=== PATIENT | male | born 1980 | race Two or more races ===

== ENCOUNTER 2016-04-09 08:34 | Emergency (ER) | payer MEDICAID ==
--- NOTE | 2016-04-09 09:29 | ED ---
General Adult HPI - General Chief complaint: Extremity Problem,Nontraumatic Stated complaint: knee pain Time Seen by Provider: 04/09/16 08:46 Source: patient, RN notes reviewed Mode of arrival: ambulatory Limitations: no limitations - History of Present Illness Initial comments: Patient is a 35-year-old male who presents emergency room today with a chief complaint of chronic pain to the left knee. He does admit that he was trying follow-up family doctor but cannot an appointment until next week. He does admit that he had a cortisone injection recently for this with little relief the symptoms. States he's trying to get a referral to get his knee taking care of. Does admit that it feels like a meniscal injury as he had one on the right and this feels similar. He states worse when he goes up and down a ladder or stairs. Patient denies any specific injury or trauma. Patient denies any recent fever, chills, shortness of breath, chest pain, back pain, abdominal pain , nausea or vomiting, numbness or tingling, dysuria or hematuria, constipation or diarrhea, headaches or visual changes, or any other complaints. - Related Data Home Medications Medication Instructions Recorded Confirmed Lisinopril-Hctz 10-12.5 mg 1 tab PO DAILY 01/07/16 04/09/16 [Zestoretic 10-12.5] amLODIPine [Norvasc] 5 mg PO DAILY 01/07/16 04/09/16 traMADol HCl [Ultram] 50 mg PO BID PRN 01/07/16 04/09/16 Previous Rx's Medication Instructions Recorded Ibuprofen [Motrin] 600 mg PO Q6HR PRN #40 day 04/09/16 Allergies Allergy/AdvReac Type Severity Reaction Status Date / Time No Known Allergies Allergy Verified 04/09/16 08:52 Review of Systems ROS Statement: Those systems with pertinent positive or pertinent negative responses have been documented in the HPI. ROS Other: All systems not noted in ROS Statement are negative. Past Medical History Past Medical History: No Reported History History of Any Multi-Drug Resistant Organisms: None Reported Past Surgical History: No Surgical Hx Reported Past Psychological History: No Psychological Hx Reported Smoking Status: Current every day smoker Past Alcohol Use History: Occasional Past Drug Use History: None Reported General Exam - General Exam Comments Initial Comments: General: The patient is awake and alert, in no distress, and does not appear acutely ill. Neck: The neck is supple, there is no tenderness or JVD. Cardiovascular: There is a regular rate and rhythm. No murmur, rub or gallop is appreciated. Respiratory: Lungs are clear to auscultation, respirations are non-labored, breath sounds are equal. No wheezes, stridor, rales, or rhonchi. Musculoskeletal: Normal appearance of the left knee no swelling or bruising. Shows full range of motion. Sensation intact pulses equal bilaterally 2+. Strength 5/5. Neurological: A&O x 3. CN II-XII intact, There are no obvious motor or sensory deficits. Coordination appears grossly intact. Speech is normal. Skin: Skin is warm and dry and no rashes or lesions are noted. Psychiatric: Normal mood and affect. Limitations: no limitations Course Vital Signs 04/09/16 08:38 Temperature 99.0 F Pulse Rate 77 Respiratory 18 Rate Blood Pressure 145/84 O2 Sat by Pulse 99 Oximetry Medical Decision Making - Medical Decision Making Patient will be referred to orthopedics or family doctor for referral and further evaluation and possible MRI. Advised ice elevate and use anti- inflammatories for pain. Disposition Clinical Impression: Knee pain Disposition: HOME SELF-CARE Condition: Good Instructions: Knee Pain (ED) Additional Instructions: Please follow-up with the family doctor or orthopedics as discussed. Please use anti-inflammatories as prescribed. Please continue to ice elevate the affected area. Please return for any other concerns. Prescriptions: Ibuprofen [Motrin] 600 mg PO Q6HR PRN #40 day PRN Reason: Pain Referrals: Zandra Agarwal MD [Primary Care Provider] - 1-2 days Patricio Cabrera MD [STAFF PHYSICIAN] - 1-2 days Time of Disposition: 09:28
[2016-04-09 09:43] VITALS: BP 120/70; PULSE 78; RESP 16; TEMP 97.8
== END 2016-04-09 09:42 | disposition home or self-care (01) ==
LOC: EC 08:34
DX: M25.562 Pain in left knee (principal); G89.29 Other chronic pain; F17.200 Nicotine dependence, unspecified, uncomplicated; Z79.899 Other long term (current) drug therapy
CPT/HCPCS: 99283

== ENCOUNTER → 2016-05-05 | Outpatient (CLI) | payer MEDICAID ==
--- NOTE | 2016-05-05 15:56 | MR ---
EXAMINATION TYPE: MR knee LT wo con DATE OF EXAM: 05/05/2016 1:48 PM COMPARISON: NONE HISTORY: Left knee pain TECHNIQUE: Multiplanar, multisequence imaging of the left knee is performed without IV contrast. FINDINGS: MEDIAL MENISCUS: There is oblique signal without communication with an articular surface within the p osterior medial meniscus. This can be compatible type I internal derangement or degenerative change. LATERAL MENISCUS: Anterior and posterior horns are intact without tear. CRUCIATE LIGAMENTS: The anterior and posterior cruciate ligaments are intact and unremarkable. COLLATERAL LIGAMENTS: The medial collateral ligament and lateral collateral ligament complex are inta ct and unremarkable. EXTENSOR MECHANISM: Visualized quadriceps and patellar tendons are intact. EFFUSION: Minimal joint fluid is present does not appear out of proportion to physiologic joint flui d. POPLITEAL CYST: No popliteal/monreal cyst. TRICOMPARTMENT SPACES: Joint spaces are preserved. No articular cartilage abnormality is identified. BONE MARROW SIGNAL: No focal abnormal marrow signal is appreciated OTHER: No additional significant abnormality is appreciated. IMPRESSION: Internal derangement posterior horn lateral meniscus. No tear communicating with an articular surface is evident.
== END | disposition home or self-care (01) ==
LOC: RADMRIMAIN 13:14
PROVIDERS: ATTEND Orthopaedic Surgery
DX: M23.8X2 Other internal derangements of left knee (principal)

== ENCOUNTER → 2016-05-26 | Outpatient (CLI) | payer MEDICAID ==
[2016-05-26 10:14] LABS: EKG EKG PERFORMED
[2016-05-26 10:46] LABS: Basophils % (A) 0 %; CH 31.3; CHCM 36.2; Eosinophils # (A) 0.1 k/uL (0-0.7); Eosinophils % (A) 1 %; HCT 44.3 % (39.0-53.0); HDW 2.98; HGB 15.5 gm/dL (13.0-17.5); Luc # (Auto) 0.19; Luc % (Auto) 2; Lymphocytes # (A) 2.1 k/uL (1.0-4.8); Lymphocytes % (A) 25 %; MCH 30.3 pg (25.0-35.0); MCHC 34.9 g/dL (31.0-37.0); MCV 86.9 fL (80.0-100.0); Mean Platelet Volume 7.3; Monocytes # (A) 0.4 k/uL (0-1.0); Monocytes % (A) 4 %; Neutrophils # (A) 5.6 k/uL (1.3-7.7); Neutrophils % (A) 67 %; RDW 13.1 % (11.5-15.5); WBC 8.3 k/uL (3.8-10.6)
[2016-05-26 11:04] LABS: Anion Gap 11 mmol/L; Carbon Dioxide 26 mmol/L (22-30); Chloride 105 mmol/L (98-107); Potassium 4.5 mmol/L (3.5-5.1); Sodium 142 mmol/L (137-145)
== END | disposition home or self-care (01) ==
LOC: LABPAT 10:03
PROVIDERS: ATTEND Orthopaedic Surgery
DX: Z01.818 Encounter for other preprocedural examination (principal); M23.92 Unspecified internal derangement of left knee; I10 Essential (primary) hypertension
CPT/HCPCS: 36415; 80051; 85025; 93005

== ENCOUNTER 2016-06-04 08:27 | Day surgery (SDC) | payer MEDICAID ==
[2016-05-30 13:07] VITALS: BMI 34.5
--- NOTE | 2016-06-03 15:07 | HP ---
DATE OF ADMISSION: 06/04/2016 Dale Forman is a 35-year-old patient seen with progressive left knee pain. After having treatment options discussed, he elected to proceed with left knee arthroscopy. Consent was obtained. His past medical history is hypertension. PAST SURGICAL HISTORY: Noncontributory. DAILY MEDICATIONS: Aleve. ALLERGIES: None. SOCIAL HISTORY: Patient currently smokes cigarettes. Physical evaluation of the left knee: Range of motion is 0 to 125 degrees, tenderness medial joint line. Positive medial Elaine's. Ligaments stable. Hip rotation without pain. Distal neurovascular exam intact. Radiographs of the left knee revealed mild osteoarthritis. MRI of the left knee revealed abnormal signal posterior medial meniscus. IMPRESSION: Internal derangement of the left knee with medial meniscal tear. PLAN: Left knee arthroscopy with partial meniscectomy and debridement.
[~2016-06-04 08:27] MED LIST: DEXAMETHASONE SOD PHOSPHATE 10 MG/ML 1 ML VIAL IV ONE; HYDROmorphone 1 MG/ML 1 ML SYRINGE IVP PRN; LACTATED RINGERS 1,000 ML IV SCH; LIDOCAINE 1% 20 ML VIAL (10MG/ML) FOR IV START INTRADERMA PRN; MIDAZOLAM 2 MG/2 ML VIAL IV PRN; ONDANSETRON 4 MG/2 ML VIAL IVP ONE; SCOPOLAMINE 1.5MG/72HR PATCH TRANSDERM ONE; ceFAZolin 2 GM in SODIUM CHLORIDE 0.9% 100 ML IVPB ONE
[2016-06-04] MEDS ORDERED: BUPIVACAIN-EPI 0.25%-1:200,000 30 ML VIAL INTRAARTIC ONE ×2 (09:37→10:20)
[2016-06-04] MEDS ORDERED: PROPOFOL 10 MG/ML 20 ML VIAL IV ONE (09:44)
[2016-06-04] MEDS ORDERED: LIDOCAINE 1% INJ 10MG/ML (20 ML MDV) ONE (09:44)
[2016-06-04] MEDS ORDERED: KETOROLAC 30 MG/ML 1 ML VIAL ONE (09:44)
[2016-06-04] MEDS ORDERED: fentaNYL (PF) 50 MCG/ML 2 ML AMP ONE (09:44)
[2016-06-04] MEDS ORDERED: SUCCINYLCHOLINE CHLORIDE 100 MG/5 ML SYR IV ONE (09:44)
[2016-06-04] MEDS ORDERED: HYDROmorphone (PF) 1 MG/ML ONE (09:44)
[2016-06-04] MEDS ORDERED: MIDAZOLAM 2 MG/2 ML VIAL ONE (09:44)
[2016-06-04 10:32] VITALS: TEMP 97.4
--- NOTE | 2016-06-04 10:39 | P.OP ---
Date of Procedure: 06/04/16 Preoperative Diagnosis: Internal derangement left knee Postoperative Diagnosis: 1. 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 Grade 3 chondromalacia patella left knee 3. Medial plica left knee 4. Reactive synovitis medial and suprapatellar compartments left knee Procedure(s) Performed: 1. Arthroscopic chondroplasty medial femoral condyle left knee 2. Arthroscopic chondroplasty patella left knee 3. Arthroscopic resection medial plica left knee 4. Arthroscopic partial synovectomy medial and suprapatellar compartments left knee Anesthesia: MARIA DEL CARMENA, local Surgeon: Real Tejeda Estimated Blood Loss (ml): 10 Pathology: none sent Condition: stable Disposition: PACU Indications for Procedure: 35-year-old patient seen with progressive left knee pain. After and treatment options discussed, he elected to proceed with arthroscopy. Operative Findings: see description of procedure Description of Procedure: Patient was taken to the operative suite. Patient underwent a general anesthetic by the department of anesthesia. Patient was given preoperative antibiotics. The left lower extremity was placed in a well-padded arthroscopic leg kurtz. The left leg was prepped and draped in the normal sterile orthopedic fashion. A lateral parapatellar and suprapatellar incision was made. Trochars were inserted. Arthroscopy was initiated. Suprapatellar pouch revealed thick reactive synovitis. The patellofemoral joint appeared to articulate congruently. There was grade 3 chondromalacia patella with osteochondral tears present. The inferior pole had area of eburnation.. The scope was guided into the medial gutter. There was a medial plica which did seem to impinge along the medial femoral condyle with range of motion.. The scope was then guided into the medial compartment. A medial parapatellar incision was made. Trocar inserted followed by probe. The medial meniscus was probed and found to be stable. There was an area of grade 1/2 chondromalacia of the medial femoral condyle with some osteochondral tears present. There was reactive synovitis. I performed a chondroplasty of the medial femoral condyle and partial synovectomy. The residual osteochondral surface was probed and found to be stable. Scope and probe were then guided into the intercondylar notch. Cruciates were identified, probed and found to be stable. The scope and probe were then guided into lateral compartment. The lateral meniscus was probed and found to be stable. The osteochondral surface lateral femoral condyle was stable. There were no loose bodies. It was no reactive synovitis. The scope was in guided back into the suprapatellar compartment. I introduced a motorized shaver and resected the medial plica. The shaver was removed. The knee was taken through range of motion with good resection medial plica no impingement of the medial femoral condyle. I now reintroduced the motorize shaver and performed a chondroplasty of the patella to stable tissue followed by a partial synovectomy. Shaver was removed. I reintroduced the probe and probed out the residual osteochondral surface the patella which was stable. The probe was removed. I now took one more look on the entire knee, no residual debris. Instruments were now removed from the joint. The joint was infiltrated with .25% Marcaine. Steri-Strips were applied to the portal sites. Sterile dressings were applied. The patient was placed into a ROSEANNE hose. No tourniquet was utilized. The patient was awakened, transferred to a bed and taken to recovery stable satisfactory condition.
[2016-06-04] MEDS ORDERED: LACTATED RINGERS 1,000 ML IV ONE (11:29)
[2016-06-04 12:13] VITALS: BP 120/71; PULSE 75; RESP 16
== END 2016-06-04 12:30 | disposition home or self-care (01) ==
LOC: OR 08:27
PROVIDERS: ATTEND Orthopaedic Surgery
DX: M22.42 Chondromalacia patellae, left knee (principal); M67.52 Plica syndrome, left knee; M65.862 Other synovitis and tenosynovitis, left lower leg; M94.8X6 Other specified disorders of cartilage, lower leg; I10 Essential (primary) hypertension; K21.9 Gastro-esophageal reflux disease without esophagitis; F17.210 Nicotine dependence, cigarettes, uncomplicated; Z79.899 Other long term (current) drug therapy; Z79.891 Long term (current) use of opiate analgesic
CPT/HCPCS: 29876; J2250; J1100; J0690; J2405; J2001; J3010; J1885; J1170; J0330; J2704

== ENCOUNTER → 2019-11-03 | Outpatient (CLI) | payer BC | END | disposition home or self-care (01) | LOC: LABWHC1 10:21 | PROVIDERS: ATTEND Family Medicine | DX: Z03.818 Encounter for observation for suspected exposure to other biological agents ruled out (principal) | CPT/HCPCS: U0003; C9803 ==

== ENCOUNTER → 2020-12-11 | Outpatient (CLI) | payer OTHER ==
--- NOTE | 2020-12-11 15:08 | MR ---
EXAMINATION TYPE: MR lumbar spine wo con DATE OF EXAM: 12/11/2020 COMPARISON: NONE HISTORY: Low back pain TECHNIQUE: Multiplanar, multisequence imaging of the lumbar spine is performed without IV contrast. FINDINGS: Sagittal images of the lumbar spine show vertebral body heights and alignment to appear sat isfactory. Multilevel disc desiccation. Mild disc space narrowing L5-S1 level otherwise vertebral bharati dy heights and disc space heights are maintained The conus medullaris is normal in position and signa l ending mid L1 level. The bone marrow signal intensity is within normal limits. No significant spur ring is seen. Axial images show T12-L1, L1-L2, and L2-L3 levels all to appear within normal limits. Axial images at L3-L4 level shows a left paracentral disc protrusion causing asymmetric moderate infe rior left-sided neural foraminal narrowing axial image 14 and sagittal image 4. Axial images at L4-L5 level shows smaller right paracentral disc protrusion causing mild to minimal r ight-sided neural foraminal narrowing. Mild facet arthropathy bilaterally. Axial images at L5-S1 level appear within normal limits. Paraspinal muscle bulk is maintained. A retroaortic left renal vein is noted which is normal variant. IMPRESSION: Eccentric disc herniation L3-L4 level causes moderate left-sided neural foraminal narrowi ng.
== END | disposition home or self-care (01) ==
LOC: RADMRIMAIN 11:28
PROVIDERS: ATTEND Orthopaedic Surgery
DX: M51.26 Other intervertebral disc displacement, lumbar region (principal); M99.73 Connective tissue and disc stenosis of intervertebral foramina of lumbar region
CPT/HCPCS: 72148

== ENCOUNTER 2021-01-29 09:54 | Day surgery (SDC) | payer OTHER ==
[2021-01-25 11:56] VITALS: BMI 35.9
[~2021-01-29 09:54] MED LIST changes: -DEXAMETHASONE SOD PHOSPHATE 10 MG/ML 1 ML VIAL IV ONE; -HYDROmorphone 1 MG/ML 1 ML SYRINGE IVP PRN; -LIDOCAINE 1% 20 ML VIAL (10MG/ML) FOR IV START INTRADERMA PRN; -MIDAZOLAM 2 MG/2 ML VIAL IV PRN; -ONDANSETRON 4 MG/2 ML VIAL IVP ONE; -SCOPOLAMINE 1.5MG/72HR PATCH TRANSDERM ONE; -ceFAZolin 2 GM in SODIUM CHLORIDE 0.9% 100 ML IVPB ONE
[2021-01-29 10:07] VITALS: TEMP 96.9
[2021-01-29] MEDS ORDERED: DEXAMETHASONE SOD PHOSPHATE 10 MG/ML 1 ML VIAL ONE (10:10)
[2021-01-29] MEDS ORDERED: IOPAMIDOL M200 10 ML VIAL ONE (10:10)
[2021-01-29] MEDS ORDERED: LIDOCAINE 1% INJ 10MG/ML (20 ML MDV) ONE (10:10)
--- NOTE | 2021-01-29 10:25 | P.PCN ---
Date of Procedure: 01/29/21 Surgeon: Fatou Drummond Pathology: none sent Condition: stable Disposition: PACU Description of Procedure: Preoperative Diagnosis: lumbar radiculopathy Postoperative Diagnosis: Same as above Procedure(s) Performed: Transforaminal epidural steroid injection for level L3-4 on the left side under fluoroscopic guidance Anesthesia: Local only with lidocaine 1% Surgeon: Fatou Drummond Condition: stable Disposition: PACU Description of Procedure: . The patient was seen and identified in the preoperative area. Risks, benefits, complications, and alternatives were discussed with the patient. The patient agreed to proceed with the procedure and signed the consent. IV was started, and vital signs were stable. Patient was taken to the OR and time out was completed. The patient was placed in the prone position on procedure table and a pillow was placed under the abdomen to reduce lumbar lordosis. The lumbosacral area was prepped and draped in the usual sterile fashion. Critical pause was taken. Vital signs were closely monitored during the procedure. Conscious sedation was used during the procedure to decrease patients anxiety. Lidocaine 1% was used to numb the skin up at the target points that were chosen as follows: For the L3-4 level the target point was at the 6 o'clock position of L3 pedicle in the left oblique view. The correct view was obtained by squaring off the L3 vertebra on the AP view of fluoroscopy then the C-arm was tilted to the left oblique position to an angle at which the superior articular process of the lower vertebra would point to the middle of the pedicle above it at the 6 o'clock position as mentioned above . Then I used 5 inch 22-gauge Quincke spinal needle to get to the target point mentioned above by touching the inferior edge of the L3 pedicle and then walking off the bone and into the superior part of the L3-4 foramen using the lateral view of fluoroscopy. I then injected 1 mL of Isovue contrast dye which showed typical epidurogram around the L3 nerve root and into the epidural space. Then I injected 1 mL of lidocaine 1% +10 mg of Decadron.. Patient tolerated procedure well,and was transferred to PACU in stable condition. A copy of the needle placement picture was saved to the fluoroscopy machine.
[2021-01-29 10:34] VITALS: RESP 18
[2021-01-29 10:45] VITALS: BP 108/72; PULSE 98
--- NOTE | 2021-01-29 11:00 | FL ---
Fluoroscopy History: TRANS EPI OSCAR tyson transforaminal ster inj fl time of 13 secs
== END 2021-01-29 10:46 | disposition home or self-care (01) ==
LOC: ORPAIN 09:54
PROVIDERS: ATTEND Anesthesiology
DX: M54.16 Radiculopathy, lumbar region (principal); E66.9 Obesity, unspecified; Z68.37 Body mass index [BMI] 37.0-37.9, adult
CPT/HCPCS: 64483; J1100; J2001 ×2; Q9966

== ENCOUNTER → 2021-04-18 | Outpatient (CLI) | payer OTHER ==
--- NOTE | 2021-04-18 12:02 | P.PN ---
Subjective Progress Note Date: 04/18/21 Principal diagnosis: A 40 yr old male with a history of severe and chronic low back pain secondary to lumbar degenerative disc diseases and lumbar spondylosis with facet arthropathy presents today for evaluation status post left TFESI of the L3-L4. Sensation states he expressively 5 pain relief for 2-3 months status post procedure. Pain level is currently at a 2-3 out of 10 in intensity, dull and achy in the lower lumbar spine but mostly shooting and a sharp sensation down to the left hip. Pain is provoked by twisting or lifting. Pain is alleviated with medications, injections, ice, heat, physical therapy in September 2020, home exercise regimen, repositioning and rest. Interventional pain procedures completed include left TFESI of the L3-L4 Patient is currently on tramadol from Dr. Alcaraz Patient denies any side effects of the medication(s), denies excessive drowsines s or sleepiness, denies suicidal ideation and reports that the current pain medication is helping to control the pain and improve activities of daily living. Patient denies any motor or sensory deficits. Patient denies any fever or night sweats, denies any change in the bowel movements or urination. Physical Examination: -Constitutional: Cooperative. Not in acute distress . -HEENT: Neck is supple. No lymphadenopathy. No thyromegaly. Normal thyroid size. Eyes: No ptosis , no icterus, no photophobia. ENT: No auditory deficits. Normal oropharynx. No Thrush. - Respiratory: Chest clear to auscultations bilaterally. No wheezing. No rhonchi. - Cardiovascular: Regular rate and rhythm. S1 / S2 , no S3 , no S4. - Gastrointestinal: Abdomen soft no tenderness. Bowel sounds positive in all four quadrants. No organomegaly. - Genitourinary: Deferred. - Neurologic: Cranial nerve II to XII intact. No focal neurological deficits. - Psychatric: Alert & oriented x 3. Matching mood & appropriate affect. Judgment and insight intact. - Lymphatic: No Lymphadenopathy. - Musculoskeletal: Cervical spine: Muscle bulk/ tone/ strength in the bilateral upper extremities normal. Facet loading test cervical area positive. Lumbar spine: Motor bulk/ tone/ strength lower extremities , thigh and legs : 5/5 Deep tendon reflexes : Normal Knee Jerk. Normal Ankle Jerk . Vertebral body tenderness to palpation over Lumbar Facet Loading Test positive Straight Leg Raise: positive at 30 degrees right side/ left side Gaenslen's Test positive on the left Sacral spine : Severe tenderness over the Sacroiliac joint: right side / left side Range of motion: Flexion of the lumbar spine <60 degrees Range of motion: Extension of the lumbar spine <20 degrees Gaenslen's Test positive on the left Eugenia test: positive right side / left side Assessment and plan: Chronic low back pain secondary to lumbar degenerative disc disease , lumbar spondylosis with facet arthropathy without myelopathy Recommendation of left TF DOMINIQUE of the L3-L4 Discussed repeat procedures may be necessary to obtain sufficient pain relief Denies aspirin or anticoagulants use Risks, benefits of procedure discussed the patient verbalized understanding All patient questions answered MAPS reviewed and it was appropriate. Prescription refill for I have spent 31 minutes on patient care today. Dr Person was available by phone for the evaluation of this patient. The time was used to review the medical records including relevant urine studies and Prescription history (MAPs), review of the available imaging, evaluation and examination of the patient, coordination of care with the medical staff and if applicable referring physicians, as well as creation of the medical record Objective - Vital Signs Vital signs: Intake & Output 04/17/21 04/18/21 04/18/21 18:59 06:59 18:59 Weight 124.738 kg PQRS Measure Charge Sheet PQRS Narrative: Smoking Status Current every day smoker Pain Intensity [Left Hip] 3 Scale Used Numeric (1 - 10) Hx Alcohol Use (MH) Yes Home Medications: Ambulatory Orders amLODIPine [Norvasc] 5 mg PO DAILY 01/07/16 Ibuprofen [Motrin] 800 mg PO Q6HR PRN #40 tab 06/04/16 Omeprazole [PriLOSEC] 20 mg PO AC-BRKFST 06/04/16 Lisinopril-Hctz 20-25 mg [Zestoretic 20-25] 1 tab PO DAILY 01/25/21 Pregabalin 150 mg PO BID PRN 01/25/21 Rosuvastatin [Crestor] 10 mg PO DAILY 01/25/21 traMADol HCL [Ultram] 50 mg PO Q6HR PRN 01/25/21
[2021-04-18 12:07] VITALS: BP 143/90; PULSE 88; RESP 18; TEMP 98
== END ==
LOC: PNWHC3 10:55
PROVIDERS: ATTEND Physician Assistant Medical
DX: M51.36 Other intervertebral disc degeneration, lumbar region (principal); M47.816 Spondylosis without myelopathy or radiculopathy, lumbar region; G89.29 Other chronic pain; F17.200 Nicotine dependence, unspecified, uncomplicated
CPT/HCPCS: 99211

== ENCOUNTER 2021-06-06 09:05 | Day surgery (SDC) | payer OTHER ==
[2021-06-04 15:09] VITALS: BMI 36.6
[2021-06-06 09:24] VITALS: TEMP 98.3
[2021-06-06] MEDS ORDERED: IOPAMIDOL M200 10 ML VIAL ONE (09:29)
[2021-06-06] MEDS ORDERED: DEXAMETHASONE SOD PHOSPHATE 10 MG/ML 1 ML VIAL ONE (09:29)
--- NOTE | 2021-06-06 09:46 | P.PCN ---
Date of Procedure: 06/06/21 Description of Procedure: PREOPERATIVE DIAGNOSIS: Lumbar radiculopathy POSTOPERATIVE DIAGNOSIS: Lumbar radiculopathy PROCEDURE 1. Transforaminal epidural steroid injection under fluoroscopic guidance left L3-L4 2. Lumbar epidurogram IMAGING Fluoroscopy was used, images where saved to the medical record ANESTHESIA: Local with 1% lidocaine 5 ml PROCEDURE DESCRIPTION / TECHNIQUE: The patient was seen and identified in the preoperative area. Risks, benefits, complications, and alternatives were discussed with the patient. The patient agreed to proceed with the procedure and signed the consent, vital signs were stable prior to the procedure. Patient was taken to the OR and time out was completed. The patient was placed in the prone position on procedure table and a pillow was placed under the abdomen to reduce lumbar lordosis. The lumbosacral area was prepped and draped in the usual sterile fashion. Vital signs were closely monitored during the procedure. Conscious sedation was used. Using oblique fluoroscopy, the chin of the "Freeman dog" at the pedicle and the skin and deeper tissues just below was localized with 1% lidocaine. Sub sequently, a 22-gauge 3.5-inch spinal needle was advanced under a tunneled view fluoroscopic guidance just underneath the chin of the "Freeman dog". Under lateral fluoroscopy, the needle was then advanced to the posterior border interforaminal space. After negative aspiration of CSF and blood and with no paresthesias, 1 mL of Omnipaque-240 contrast dye was injected excellent epidurogram. Subsequently, a solution totalling 2ml of dexamethasone and PFNS was injected after negative aspiration (total of 10mg of dexamethasone was used). The needle was removed intact. COMPLICATIONS: None DISPOSITION: The patient was placed in a supine position and transferred to the recovery area in a stable condition for observation. There was no evidence of l ower extremity motor or sensory deficit after the procedure. Patient was discharged from the recovery room after meeting discharge criteria. Home discharge instructions were given to the patient by the staff. The patient was reexamined prior to discharge. Follow up as directed.
[2021-06-06 10:14] VITALS: RESP 16
[2021-06-06 10:15] VITALS: BP 120/80; PULSE 87
--- NOTE | 2021-06-06 12:33 | FL ---
Fluoroscopy HISTORY: Pain 5 seconds fluoroscopy time supplied to the referring clinician. 1 intraoperative C-arm images docume nt the procedure. See dictated report from anesthesia.
== END 2021-06-06 10:27 | disposition home or self-care (01) ==
LOC: ORPAIN 09:05
PROVIDERS: ATTEND Hospitalist
DX: M51.26 Other intervertebral disc displacement, lumbar region (principal); M54.16 Radiculopathy, lumbar region
CPT/HCPCS: 64483; J1100; Q9966